=== PATIENT | female | born 1990 | race Caucasian/White ===

== ENCOUNTER 2016-06-30 21:10 | Emergency (ER) | payer SELFPAY ==
[~2016-06-30] VITALS: Ht 162.6 cm; Wt 120.6 kg
[~2016-06-30 21:10] MED LIST: COLACE100 M1 PO; FERROUS SULFAT325 M1 PO; MOTRIN800 MG PO; NORCO 325-5 MG1 TAB PO; PRENATAL PLUS I1 TAB PO
== END 2016-06-30 22:18 | disposition short-term general hospital (02) ==
LOC: ER 21:10
DX: R10.11 Right upper quadrant pain (principal); Z98.890 Other specified postprocedural states

== ENCOUNTER 2016-09-28 18:20 | Emergency (ER) | payer SELFPAY ==
[~2016-09-28] VITALS: Ht 157.5 cm; Wt 118.8 kg
== END 2016-09-28 19:45 | disposition short-term general hospital (02) ==
LOC: ER 18:20
DX: R11.2 Nausea with vomiting, unspecified (principal); R10.11 Right upper quadrant pain
CPT/HCPCS: J2405